=== PATIENT | female | born 1965 | race Caucasian/White ===

== ENCOUNTER → 2016-11-16 13:25 | Outpatient (CLI) | payer MEDICAID ==
[2012-05-21 13:43] VITALS: BMI 32.3
== END | disposition home or self-care (01) ==
LOC: D.US 13:25
DX: N93.9 Abnormal uterine and vaginal bleeding, unspecified (principal)

== ENCOUNTER → 2018-09-17 08:41 | Outpatient (CLI) | payer MEDICAID ==
[~2018-09-17] VITALS: Ht 167.6 cm; Wt 104.5 kg
[~2018-09-17 08:41] MED LIST: BUPROPION XL150 MG PO; ELIQUIS5 MG PO; HYDROCODON-ACE1 EAC2; KEPPRA750 MG PO; KLONOPIN1 MG PO; LIPITOR20 MG PO; NEURONTIN 300300 MG; TRAZODONE HCL150 MG PO; VICTOZA0.6 MG/0.1 SQ; VOLTAREN25 MG PO; ZANAFLEX4 MG PO; ZOLOFT100 MG PO
[2018-09-17 09:15] LABS: HEMATOCRIT 37.7 % (36.0-48.0); HEMOGLOBIN 12.6 g/dL (12-16); MCHC 33.4 g/dL (31.0-37.0); MCV 95.7 fL (80.0-100.0); MEAN PLATELET VOLUME 11.5 fL (7.4-10.4); RBC 3.94 10x6/uL (4.00-5.40); WBC 7.6 10x3/uL (4.8-10.8)
[2018-09-17 09:18] LABS: CALC OSMOLALITY 283 mosm/kg (275-300); CALCIUM 8.9 mg/dL (8.5-10.1); CARBON DIOXIDE 27.8 mmol/L (21.0-32.0); CHLORIDE - SERUM 105 mmol/L (98-107); CREATININE - SERUM 0.8 mg/dL (0.6-1.3); POTASSIUM - SERUM 4.3 mmol/L (3.5-5.1); SODIUM 140 mmol/L (136-145); UREA NITROGEN 14 mg/dL (7-18); eGFR NON AFRICAN AMERICAN 80 mL/min (90-120)
[2018-09-17 09:22] LABS: GLUCOSE 169 mg/dL (74-106)
[2018-09-17 09:48] LABS: HCG SERUM NEGATIVE (NEGATIVE)
[2018-09-17 09:53] VITALS: BP 111/58; Ht 167.6 cm; Wt 104.5 kg
== END | disposition home or self-care (01) ==
LOC: D.OPS 07:30 → EDSTATUS 07:30 → D.OPS 08:41
PROVIDERS: Anesthesiology; ATTEND Internal Medicine Gastroenterology
DX: K21.9 Gastro-esophageal reflux disease without esophagitis (principal); R10.13 Epigastric pain; R11.2 Nausea with vomiting, unspecified; K92.1 Melena

== ENCOUNTER 2018-09-22 06:03 | Day surgery (SDC) | payer MEDICAID | END 2018-09-22 09:20 | disposition home or self-care (01) | LOC: D.OPS 06:03 | DX: K92.1 Melena (principal); K64.5 Perianal venous thrombosis; R10.9 Unspecified abdominal pain; D12.0 Benign neoplasm of cecum ==

== ENCOUNTER 2018-12-15 14:02 | Day surgery (SDC) | payer MEDICAID ==
[~2018-12-15] VITALS: Ht 167.6 cm; Wt 104.5 kg
[2018-12-15 14:20] LABS: HEMATOCRIT 37.5 % (36.0-48.0); HEMOGLOBIN 12.6 g/dL (12-16); MCH 30.9 pg (26.0-34.0); MCHC 33.6 g/dL (31.0-37.0); MCV 91.9 fL (80.0-100.0); MEAN PLATELET VOLUME 11.4 fL (7.4-10.4); RBC 4.08 10x6/uL (4.00-5.40); RDW 13.7 % (11.5-14.5); WBC 7.7 10x3/uL (4.8-10.8)
[2018-12-15 14:29] LABS: ANION GAP 7.4 mmol/L (8-16); CALCIUM 8.7 mg/dL (8.5-10.1); CARBON DIOXIDE 33.4 mmol/L (21.0-32.0); POTASSIUM - SERUM 3.8 mmol/L (3.5-5.1)
[2018-12-15 14:50] LABS: APTT 29.5 SECONDS (22.8-39.4); INR 1.04 (0.85-1.17); PROTIME 13.1 SECONDS (11.6-15.0)
[2018-12-15 15:00] VITALS: BP 130/80; Ht 167.6 cm; Wt 104.5 kg
--- NOTE | 2018-12-15 15:58 | NUR ---
1525 NAUSEA WITH EMESIS OF PHLEGM 1547 ZOFRAN 4MG IV GIVEN, C/O CHEST DISCOMFORT. EKG DONE
--- NOTE | 2018-12-15 16:01 | NUR ---
1600 132/58 59 24 100% SAT ON 2L NC. CO CHEST PAIN AND CANNOT BREATH DR. MACHADO PRESENT LISTENS TO LUNGS. PT REPOSITIONED IN BED ELEVATED
--- NOTE | 2018-12-15 16:08 | NUR ---
1608 115/47 56 20 100% SAT O2 2L NC PORT CXR HAS BEEN ORDERED.
--- NOTE | 2018-12-15 16:08 | NUR ---
1605 PORT CXR ORDERED. AUDRA COLUNGA [employer]MENT[employer] MARKETER PRESENT.
--- NOTE | 2018-12-16 15:07 | OP ---
PATIENT NAME: LISANDRA SILVA MEDICAL RECORD: [id number] :69 LOCATION:[facility] ADMISSION DATE: SURGEON: KEITH MACHADO DO DATE OF OPERATION: 12/15/2018 PROCEDURE: EGD with biopsies. INDICATIONS FOR PROCEDURE: GERD, epigastric abdominal tenderness, nausea and vomiting. SCOPE: Olympus video gastroscope. MEDICATIONS: Propofol 250 mg IV per anesthesia. ESTIMATED BLOOD LOSS: Less than 2 mL. COMPLICATIONS: None immediate. FINDINGS: Informed consent was given. The patient was made comfortable with the above medication. After reaching an adequate level of sedation by slow IV push, the patient was placed on left side. The endoscope was advanced under direct visualization through the mouth to the second portion of the duodenum with ease. The entire esophagus appeared normal. At the GE junction, there were mild changes consistent with LA class A reflux-induced esophagitis. The endoscope was advanced beyond the GE junction in the stomach and retroflexed to view the cardia and fundus, which appeared normal. Throughout the body of the stomach as well as the antrum and prepyloric regions, there were patchy areas of erythema and diffuse granularity consistent with possible gastritis. Two cold forceps biopsies were taken from the antrum and incisura to submit for histopathology and to rule out the presence of H. pylori. In the prepylorus, there were a couple of very superficial and small gastric ulcers present. There were no bleeding stigmata present. The endoscope was advanced beyond the pylorus into the duodenum, which appeared normal down to the second portion. The endoscope was then withdrawn from the patient. The patient tolerated the procedure well and there were no complications. IMPRESSION: 1. LA class A reflux-induced esophagitis. 2. Mild gastritis. 3. Few gastric ulcers. PLAN AND RECOMMENDATIONS: 1. Discharge home when recovery parameters are met. 2. Follow up biopsy specimen results. 3. GERD diet and reflux precautions. 4. Trial of omeprazole 40 mg daily for 60 days. 5. If symptoms do not improve with PPI therapy, consider gastric emptying scan further workup. TRANSINT:[id number] Voice Confirmation ID: [id number] DOCUMENT ID: [id number] OPERATIVE REPORT [id number] LISANDRA SILVA KEITH MACHADO DO at [id number] CC: [id number] DICTATION DATE: 12/15/18 1541 STITCHER OPERATOR: 12/15/18 1826 [facility] 12/15/18 [place] [id number] [place] [id number]
== END 2018-12-15 18:10 | disposition home or self-care (01) ==
LOC: D.OPS 14:02
PROVIDERS: Anesthesiology; ATTEND Internal Medicine Gastroenterology
DX: K21.0 Gastro-esophageal reflux disease with esophagitis (principal); K29.50 Unspecified chronic gastritis without bleeding; K25.9 Gastric ulcer, unspecified as acute or chronic, without hemorrhage or perforation; B96.81 Helicobacter pylori [H. pylori] as the cause of diseases classified elsewhere; Z01.812 Encounter for preprocedural laboratory examination

== ENCOUNTER → 2019-03-17 15:40 | Outpatient (CLI) | payer MEDICAID ==
[2018-12-15 15:00] VITALS: BMI 37.2
== END | disposition home or self-care (01) ==
LOC: D.MRI 15:30
PROVIDERS: ATTEND Nurse Practitioner Family
DX: S80.01XA Contusion of right knee, initial encounter (principal)